=== PATIENT | male | born 1965 | race Caucasian/White ===

== ENCOUNTER → 2023-02-26 | Outpatient (CLI) | payer MEDICAID, SELFPAY ==
[2023-02-23 13:31] VITALS: BP 122/77; PULSE 95; RESP 18; O2SAT 97
--- NOTE | 2023-02-23 15:07 | RAD_ITS ---
STUDY: X-RAY CHEST REASON FOR EXAM: Male, 57 years old. PICC LINE PLACEMENT TECHNIQUE: Single AP portable view of the chest. COMPARISON: None. FINDINGS: A left-sided PICC line catheter has been placed with the tip of the left side of the midline. Patient may have venous anomaly. The lungs are clear and expanded. There is no demonstrated pleural abnormality. Normal size heart. Right hilar and right suprahilar mass. Normal visualized pulmonary arteries. Normal visualized aortic arch and descending thoracic aorta. Normal visualized thoracic spine. Normal visualized ribs, clavicles, and shoulders. There is no demonstrated abnormality of the visualized soft tissue structures of the upper abdomen. 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 Electronically Signed: Nicolas Mcgovern MD at 14:17 EST ,
--- NOTE | 2023-02-23 15:15 | RAD_ITS ---
STUDY: X-RAY CHEST REASON FOR EXAM: Male, 57 years old. Lateral; picc placement TECHNIQUE: AP and lateral views of the chest. COMPARISON: None. FINDINGS: A left-sided PICC line catheter has been placed. The tip of the PICC line is in the left side of midline. 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 Right hilar and right paratracheal mass. 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
--- NOTE | 2023-02-23 15:48 | PRO.PCM_ITS ---
Procedure Report Date of Procedure: 02/23/23 Assessment & Plan Assessment/Plan (1) Anal cancer: Procedures Radiology Radiology Access Procedures: PICC Procedure Time Out Time Out Informed consent given: Yes Consent signed: Yes Time out checklist: patient, procedure, site marked/identified, positioning of patient, supplies available, allergies confirmed and team agrees on procedure Time out staff in room: Yes Time out verified: Yes Time out date: 02/23/23 Time out time: 14:07 PICC Line Consent Screening tool completed:: Yes Consent obtained:: Yes Consent given by (patient or responsible libertarian):: patient Line successful (if no, document why in comments):: No Insertion Reason for Insertion: Chemotherapy Comments Comment: PICC line was attempted in the left basilic. Patient requested left access if possible. Left basilic was easily accessed however there was difficulty advancing the catheter at what was suspected the arch of the vessels. Patient was asked to reposition head and flushes were used and catheter then advanced easily. Using 3 CG technology, P wave was assessed for changes. Amplified P wave, without deflection, was obtained at what would have been the expected catheter length with 1 cm external. However, successive P wave changes were not as expected with a centimeter to centimeter adjustments. Due to this, a chest x-ray was obtained. This was reviewed by Dr. Mcgovern and myself, and revealed that the PICC line was malpositioned in a left-sided vessel. The patient has no previous imaging to reference at this facility. The situation was explained to the patient, and he and his verbalized understanding. The the catheter was then removed with the patient lying supine and patient performing Valsalva maneuver. Vaseline gauze was applied with occlusive dressing. The patient will return on Sunday morning at 715 for right-sided placement. Dr. Renner's office staff was made aware of this.
[2023-02-26 07:19] VITALS: BP 136/86; PULSE 75; RESP 16; O2SAT 98
--- NOTE | 2023-02-26 08:20 | RAD_ITS ---
STUDY: X-RAY CHEST REASON FOR EXAM: Male, 57 years old. picc insertion TECHNIQUE: Single AP portable view of the chest. COMPARISON: Comparison is made with prior study dated February 23, 2023. FINDINGS: A right-sided PICC line catheter is seen with the tip in the left side of the midline mid depth. 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 Right paratracheal and right suprahilar mass. RAD/CXR for Line Placement IMPRESSION: The right-sided PICC line catheter is seen in the left side of the midline most likely within the venous structure. Patient most likely as a venous anomaly. Right paratracheal and right perihilar mass. Electronically Signed: Nicolas Mcgovern MD at 8:52 EST ,
--- NOTE | 2023-02-26 11:07 | PCM.OP.PRO ---
Procedure Report Date of Procedure: 02/26/23 Assessment & Plan Assessment/Plan (1) Anal cancer: Procedures Radiology Radiology Access Procedures: PICC Procedure Time Out Time Out Informed consent given: Yes Consent signed: Yes Time out checklist: patient Time out verified: Yes Time out date: 02/26/23 Time out time: 08:20 PICC Line Consent Screening tool completed:: Yes Consent obtained:: Yes Consent given by (patient or responsible libertarian):: PATIENT Insertion Type of PICC inserted: Single Power PICC PICC Lot #: [id number] PICC Reference #: [id number] Ultrasound/Equipment Used: Probe Cover Kit Trimmed Length (cm): 44 Insertion Length (cm): 44 Exposed Length (cm): 0 Tip Placement: THORACIC VESSEL Placement Confirmation: Xray Insertion Vein: Right Basilic Insertion Attempts: 1 Local Anesthesia Used: Lidocaine 1% (in kit) Dressing Applied: Statlock and Tegaderm CHG Arm Measurement above site (in cm): 29 Patient Tolerated Procedure: Well Threading Difficulties: No Comments Comment: Patient presented today again for PICC line insertion. The patient was positioned supine with right arm at 90 degrees. The right basilic vein assessed using ultrasound and was marked. An external measurement was obtained. External leads were applied to the right upper chest and lateral and inferior of the umbilicus in the mid axillary line. Cap and mask were donned. Drape was placed under the patient's arm, the site was prepped with chlorhexidine, and tourniquet was loosely applied. Sterile field was established, sterile gown and gloves were donned, and the patient was draped. The marked site of insertion was anesthetized with 1% lidocaine. Patient tolerated well. The right basilic vein was then easily accessed using ultrasound guidance and guidewire was inserted to safety afshin. The site was again anesthetized with 1% lidocaine, prior to insertion of introducer. Patient tolerated well. The catheter was trimmed to a length of 44 cm. Using 3C guidance, the catheter was then inserted. There was no resistance on insertion today. However, it was again apparent on 3 CG that the catheter was being displaced to the left side of the chest and EKG changes were not as expected, if in the SVC. The insertion site was cleaned with chlorhexidine and the catheter was secured using a StatLock. The site was covered with a Tegaderm CHG Dressing. X-ray was then called for line placement chest x-ray. On x-ray, the catheter was again visualized on the left side of the thorax. Chest CT was obtained from Dr. Renner's office from 01/25/2023. This imaging revealed enhancing soft tissue mass in the anterior mediastinum, anterior to the main pulmonary artery measuring 4.5 x 2.9 x 4.1 cm. It is suspected that because of this mass the central catheter is being displaced. Per radiologist guidance, Dr. Mcgovern, PICC line may remain in this location so that the patient may begin treatment. were both informed of these findings, and were instructed to report to Dr. Renner's office for first treatment, as planned.
== END | disposition home or self-care (01) ==
PROVIDERS: PCP Family Medicine; Referring Provider Internal Medicine Hematology & Oncology; Visit Provider Internal Medicine Hematology & Oncology
DX: C21.0 Malignant neoplasm of anus, unspecified (principal)
CPT/HCPCS: 36569; 71045

== ENCOUNTER → 2023-03-23 | Outpatient (CLI) | payer MEDICAID, SELFPAY ==
[2023-03-23 12:21] VITALS: BP 132/76; PULSE 85; RESP 18; TEMP 36.4; O2SAT 97; BMI 29.9
--- NOTE | 2023-03-23 13:15 | RAD_ITS ---
HISTORY: PICC placement, known mediastinal mass. TECHNIQUE: XR Chest 1 View. COMPARISON: 02/26/2023. 02/23/2023. FINDINGS: CARDIOMEDIASTINAL BORDERS: Cardiac silhouette within normal limits in size. Right paratracheal and hilar mass again seen. Right PICC crosses the midline with tip likely in the persistent left superior vena cava. LUNGS: Radiographically clear. PLEURA: No pleural effusion or pneumothorax seen. OSSEOUS STRUCTURES: Mild degenerative change. 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 Electronically Signed: Jada Holliday MD at 13:33 EST ,
--- NOTE | 2023-03-23 13:36 | PCM.OP.PRO ---
Procedure Report Date of Procedure: 03/23/23 Assessment & Plan Assessment/Plan (1) Anal cancer: Procedures Radiology Radiology US Procedures: Other Procedure See Report (Outpatient PICC Insertion [id number]) Procedure Time Out Time Out Informed consent given: Yes Consent signed: Yes Time out checklist: patient, procedure, site marked/identified, positioning of patient, supplies available and allergies confirmed Time out verified: Yes Time out date: 03/23/23 Time out time: 12:33 PICC Line Consent Screening tool completed:: Yes Consent obtained:: Yes Consent given by (patient or responsible democrat):: patient Line successful (if no, document why in comments):: Yes Insertion Reason for Insertion: Chemotherapy Date of Insertion: 03/23/23 Ok to use: Yes Type of PICC inserted: Single Power PICC PICC Lot #: [id number] PICC Reference #: [id number] Microintroducer Used: Yes (in kit) Ultrasound/Equipment Used: Probe Cover Kit Trimmed Length (cm): 45 Insertion Length (cm): 45 Exposed Length (cm): 0 Tip Placement: SVC (Superior Vena Cava) Placement Confirmation: Xray Insertion Vein: Right Basilic Insertion Attempts: 1 Local Anesthesia Used: Lidocaine 1% (in kit) Dressing Applied: Statlock and Tegaderm CHG Arm Measurement above site (in cm): 30 Patient Tolerated Procedure: Well Threading Difficulties: No Comments Comment: Patient identity was verified with two patient identifiers. Informed consent was obtained and time-out was completed. Hands were sanitized. The patient was positioned supine with right arm at 90 degrees. The patient's upper arm vasculature was assessed using ultrasound, and the right basilic vein was externally marked. An external measurement was obtained of 45 cm. External leads were applied to the patient's right upper chest and laterally and inferior of the umbilicus on the mid axillary line. Cap, mask, and prep gloves were donned. The underdrape was placed under the patient's arm. The site was prepped with chlorhexidine, and tourniquet was loosely applied. Prep gloves were discarded, and hands were sanitized. The sterile kit was opened with additional supplies dropped in. Sterile gown and gloves were donned, and the patient was draped. The sterile kit was assembled with all needle, introducer, connector, and catheter flushed with sterile normal saline. The marked site of insertion was anesthetized with 1% lidocaine. Patient tolerated well. The right basilic vein was then accessed using ultrasound guidance and guidewire was inserted to safety afshin. The tourniquet was released. The access needle was removed while securing the guidewire in place. The site was again anesthetized with 1% lidocaine, prior to insertion of introducer sheath and dilator. Patient tolerated well. The catheter was trimmed to a length of 45 cm. Using 3C guidance, the catheter was then inserted through the introducer sheath, slowly. There was no resistance on insertion. The patient has a known mediastinal mass, as per previous CT of the chest from [facility]. So while 3 CG guidance was useful for determination of the PICC moving forward and downward in the vessel, maximal p-wave, without deflection, not able to be assessed. The catheter was inserted to the measured length of 45 cm, leaving 0 cm external. The introducer sheath was retracted and peeled away, incrementally, while keeping the catheter secured. The stylet was removed. A flushed needleless connector was attached to the lumen. Blood return was verified and the lumen was flushed with sterile normal saline in a pulsatile fashion and clamped. Total sterile flushes used for the insertion was 5 10 ml syringes, 1 from the PICC kit. Finally, the insertion site was cleaned with chlorhexidine, and the catheter was secured using a StatLock. The site was covered with a Tegaderm CHG Dressing. Baseline arm circumference was obtained at the insertion site and measured 30 cm. A chest x-ray was obtained to verify placement. As expected, the PICC line was again shifted to the left of the mediastinum due to the known mediastinal mass. The patient was provided with a patient education handout on PICC line care and verbalized understanding of infection prevention, heavy lifting restriction, maintaining mobility, and watching for any signs of infection. Will follow-up with Dr. Renner's office for chemotherapy, dressing changes as needed, and any concerns.
== END | disposition home or self-care (01) ==
PROVIDERS: PCP Family Medicine; Referring Provider Internal Medicine Hematology & Oncology; Visit Provider Internal Medicine Hematology & Oncology
DX: C21.0 Malignant neoplasm of anus, unspecified (principal)
CPT/HCPCS: 36569; 71045